=== PATIENT | male | born 1985 | race African-American/Black ===

== ENCOUNTER 2017-04-27 15:31 | Emergency (ER) | payer MEDICAID ==
[~2017-04-27] VITALS: Ht 188 cm; Wt 106.0 kg
[2017-04-27] MEDS ORDERED: LIDOCAINE HCL 1% 20ML VIAL (Pyxis) INJ INFIL ONE (18:30)
[2017-04-27] MEDS ORDERED: BACITRACIN ZINC OINT UDPKT TOP ONE (18:30)
[2017-04-27] MEDS ORDERED: TRAMADOL 50MG TABLET PO ONE (18:45)
[2017-04-27 19:46] VITALS: BP 135/82
== END 2017-04-27 19:46 | disposition home or self-care (01) ==
LOC: ER 16:29
DX: S01.511A Laceration without foreign body of lip, initial encounter (principal); W50.0XXA Accidental hit or strike by another person, initial encounter; Y93.67 Activity, basketball; Y92.89 Other specified places as the place of occurrence of the external cause; Y99.8 Other external cause status
CPT/HCPCS: 12051; 99284; J3490; Z7610